=== PATIENT | male | born 1965 | race Caucasian/White ===

== ENCOUNTER → 2017-08-29 | Outpatient (CLI) | payer BC ==
--- NOTE | 2017-08-29 09:47 | DIAGNOSTIC IMAGING REPORT ---
LEFT KNEE INCLUDING BILATERAL STANDING AP VIEWS (4 VIEWS) CLINICAL HISTORY: LEFT KNEE PAIN COMPARISON: 01/06/2015 DISCUSSION: There are minimal degenerative changes. No fractures are visualized. There are no erosive or destructive changes. IMPRESSION: Minimal degenerative change. No fractures identified. Electronically signed by: Sam Dawkins M.D. 08/29/2017 9:46 AM Dictated Date/Time: 08/29/2017 9:45 AM
== END | disposition home or self-care (01) ==
LOC: C.RDSM 10:21
PROVIDERS: ATTEND Family Medicine
DX: M25.562 Pain in left knee (principal)